=== PATIENT | female | born 1950 | race Caucasian/White ===

== ENCOUNTER 2019-08-14 08:51 | Emergency (ER) | payer MEDICARE, OTHER ==
[2019-08-14] MEDS ORDERED: IBUPROFEN 600 MG TABLET PO ONE (09:46)
[2019-08-14] MEDS ORDERED: ACETAMINOPHEN 325 MG TABLET PO ONE (09:46)
--- NOTE | 2019-08-14 09:48 | ER Document Report ---
HPI - HPI Time Seen by Provider: 08/14/19 09:07 Pain Level: 4 Context: Patient is a 69-year-old female who presents to the emergency department with a chief complaint of left lower leg, and left knee pain. She was walking her dogs yesterday evening and her dog ran away from her over hill and ran back and she ended up falling on her left side. She denies hitting her head, loss of consciousness, red blood thinner use. Patient is able to walk, but it hurts to put pressure on the left side. She has a past medical history of dystonia, COPD, hypertension, and CLL. - CONSTITUTIONAL Constitutional: DENIES: Fever, Chills - NEURO Neurology: DENIES: Headache, Weakness - CARDIOVASCULAR Cardiovascular: DENIES: Chest pain - RESPIRATORY Respiratory: DENIES: Trouble Breathing, Coughing - GASTROINTESTINAL Gastrointestinal: DENIES: Abdominal Pain - MUSCULOSKELETAL Musculoskeletal: REPORTS: Extremity pain - Left foot, lower leg, and knee - DERM Skin Color: Normal Skin Problems: None Past Medical History - Social History Smoking Status: Former Smoker Chew tobacco use (# tins/day): No Frequency of alcohol use: None Drug Abuse: None Family History: Reviewed & Not Pertinent Patient has suicidal ideation: No Patient has homicidal ideation: No - Past Medical History Cardiac Medical History: Reports: Hx Hypercholesterolemia, Hx Hypertension Pulmonary Medical History: Reports: Hx COPD Endocrine Medical History: Reports: Hx Diabetes Mellitus Type 2 Renal/ Medical History: Denies: Hx Peritoneal Dialysis Past Surgical History: Reports: Hx Tubal Ligation Vertical Provider Document - CONSTITUTIONAL Agree With Documented VS: Yes Exam Limitations: No Limitations General Appearance: No Apparent Distress - INFECTION CONTROL TRAVEL OUTSIDE OF THE [place] IN LAST 30 DAYS: No - HEENT HEENT: Atraumatic, Normocephalic - NECK Neck: Normal Inspection - RESPIRATORY Respiratory: No Respiratory Distress - CARDIOVASCULAR Pulses: Normal: Posterior tibial, Dorsalis pedis - MUSCULOSKELETAL/EXTREMETIES Musculoskeletal/Extremeties: FROM, Tender, No Edema, Eccymosis - Left proximal lateral lower leg Notes: Bilateral signs of left knee, left lateral lower leg, left foot and fourth metatarsal. - NEURO Level of Consciousness: Awake, Alert, Appropriate Motor/Sensory: No Motor Deficit, No Sensory Deficit - DERM Integumentary: Warm, Dry, No Rash Course - Re-evaluation Re-evalutation: 09/16/19 11:23 Patient has a possible fourth metatarsal fracture. She does have point tenderness to that area. Patient will be placed in a boot to help with healing. I have given her instructions on ibuprofen and Tylenol use. She will be placed on crutches. No vascular compromise noted. Capillary refill less than 3 seconds. Follow-up precautions were given. Verbal discharge instructions were given to the patient. They verbalized understanding. They are stable for discharge. - Vital Signs Vital signs: Temp Pulse Resp BP Pulse Ox 98.6 F 76 20 110/58 L 97 08/14/19 08:56 08/14/19 08:56 08/14/19 08:56 08/14/19 08:56 08/14/19 08:56 Discharge - Discharge Clinical Impression: Left leg pain Left knee pain Qualifiers: Chronicity: acute Qualified Code(s): M25.562 - Pain in left knee Fracture of fourth metatarsal bone of left foot Qualifiers: Encounter type: initial encounter Fracture type: closed Fracture alignment: displaced Qualified Code(s): S92.342A - Displaced fracture of fourth metatarsal bone, left foot, initial encounter for closed fracture Condition: Stable Disposition: HOME, SELF-CARE Additional Instructions: Your x-ray shows that you may have a fracture in your foot . You should continue to take anti-inflammatories such as ibuprofen 600 mg and acetaminophen 1000 mg every 6 hours. You are being placed in a postop boot and crutches. Please follow-up with orthopedics as needed. Please follow-up with your primary care physician if you do not have improving your symptoms in the next 1-2 weeks. Please return immediately if you develop weakness, numbness, spreading redness from the area, or any other symptoms that are concerning to you. Referrals: SONYA TAYLOR JR, [ACTIVE PROVISIONAL STAFF] - Follow up in 1 week
--- NOTE | 2019-08-14 11:19 | RADIOLOGY REPORT (SQ) ---
EXAM DESCRIPTION: FOOT LEFT COMPLETE COMPLETED DATE/TIME: 08/14/2019 11:03 am REASON FOR STUDY: fall COMPARISON: None. NUMBER OF VIEWS: Three views. TECHNIQUE: AP, lateral and oblique radiographic images acquired of the left foot. LIMITATIONS: None. FINDINGS: MINERALIZATION: Normal. BONES: No definite fracture. However, there is angulation of the neck of the 4th metatarsal. JOINTS: No effusions. SOFT TISSUES: No soft tissue swelling. No foreign body. OTHER: No other significant finding. IMPRESSION: Cannot entirely rule out a fracture of the neck of the 4th metatarsal. [facility]. TECHNICAL DOCUMENTATION: JOB ID: [id number] [employer]- All Rights Reserved Reading location - IP/workstation name: [email or web address]
--- NOTE | 2019-08-14 11:20 | RADIOLOGY REPORT (SQ) ---
EXAM DESCRIPTION: KNEE LEFT 4 VIEW COMPLETED DATE/TIME: 08/14/2019 11:03 am REASON FOR STUDY: fall COMPARISON: None. NUMBER OF VIEWS: Four views. TECHNIQUE: AP, lateral, and both oblique radiographic images acquired of the left knee. LIMITATIONS: None. FINDINGS: MINERALIZATION: Normal. BONES: No acute fracture or dislocation. No worrisome bone lesions. JOINT: No effusion. SOFT TISSUES: No soft tissue swelling. No radio-opaque foreign body. OTHER: No other significant finding. IMPRESSION: NEGATIVE STUDY OF THE LEFT KNEE. NO RADIOGRAPHIC EVIDENCE OF ACUTE INJURY. TECHNICAL DOCUMENTATION: JOB ID: [id number] [employer]- All Rights Reserved Reading location - IP/workstation name: [email or web address]
--- NOTE | 2019-08-14 11:21 | RADIOLOGY REPORT (SQ) ---
EXAM DESCRIPTION: TIBIA FIBULA LEFT COMPLETED DATE/TIME: 08/14/2019 11:03 am REASON FOR STUDY: fall COMPARISON: None. NUMBER OF VIEWS: Two views. TECHNIQUE: Two radiographic images acquired of the left tibia and fibula to include the knee and ank le in at least one projection. LIMITATIONS: None. FINDINGS: MINERALIZATION: Normal. BONES: No acute fracture or dislocation. No worrisome bone lesions. SOFT TISSUES: No obvious swelling or foreign body. OTHER: No other significant finding. IMPRESSION: NEGATIVE STUDY OF THE LEFT TIBIA AND FIBULA. NO RADIOGRAPHIC EVIDENCE OF ACUTE INJURY. TECHNICAL DOCUMENTATION: JOB ID: [id number] [employer] All Rights Reserved Reading location - IP/workstation name: [email or web address]
[2019-08-14 12:03] VITALS: BP 125/62
== END 2019-08-14 12:05 | disposition home or self-care (01) ==
LOC: ER 08:51
DX: S92.342A Displaced fracture of fourth metatarsal bone, left foot, initial encounter for closed fracture (principal); M79.662 Pain in left lower leg; M25.562 Pain in left knee; W18.30XA Fall on same level, unspecified, initial encounter; Y93.K1 Activity, walking an animal; E78.00 Pure hypercholesterolemia, unspecified; I10 Essential (primary) hypertension; J44.9 Chronic obstructive pulmonary disease, unspecified; E11.9 Type 2 diabetes mellitus without complications; Z98.51 Tubal ligation status
CPT/HCPCS: 73630; 73564; 73590; A9270 ×2; 99283